=== PATIENT | male | born 1980 | race Caucasian/White ===

== ENCOUNTER 2016-09-25 13:03 | Emergency (ER) | payer MEDICAID ==
[~2016-09-25] VITALS: Ht 165.1 cm; Wt 88.5 kg
[2016-09-25 13:16] VITALS: BP 142/91
--- NOTE | 2016-09-25 14:33 | NUR ---
6 YO MALE BIB SELF FOR LEFT GROIN PAIN, FOR ONE MONTH. DENIES N/V/D; SKIN IS PINK/WARM/DRY; AAOX4 WITH EVEN AND STEADY GAIT; LUNGS CLEAR BL; HR EVEN AND REGULAR; PT DENIES ANY FEVER, CP, SOB, OR COUGH AT THIS TIME; PATIENT STATES PAIN OF 8/10 AT THIS TIME; VSS; PATIENT POSITIONED FOR COMFORT; HOB ELEVATED; BEDRAILS UP X2; BED DOWN. ER MD MADE AWARE OF PT STATUS.
--- NOTE | 2016-09-25 14:34 | NUR ---
Dr. Geller evaluating patient at bedside.
--- NOTE | 2016-09-25 15:02 | NUR ---
US tech at bedside for exam.
--- NOTE | 2016-09-25 17:30 | NUR ---
PT STS PAIN 3/10 .Patient appears to be resting comfortably in bed. Vital Signs within normal limits. Respirations even and unlabored.WILL CONTINUE TO MONITOR.
--- NOTE | 2016-09-25 17:46 | NUR ---
Dr. Geller reevaluating patient at bedside.
--- NOTE | 2016-09-25 18:00 | NUR ---
Patient discharged with v/s stable. Written and verbal after care instructions given and explained. Patient verbalized understanding. Ambulatory with steady gait. All questions addressed prior to discharge. Advised to follow up with PMD.
[2016-09-25 18:04] VITALS: BP 128/75
== END 2016-09-25 18:00 | disposition home or self-care (01) ==
LOC: MED 13:03
DX: R10.30 Lower abdominal pain, unspecified (principal)
CPT/HCPCS: 76870; 99284

== ENCOUNTER 2018-09-06 08:14 | Emergency (ER) | payer MEDICAID ==
[~2018-09-06] VITALS: Ht 165.1 cm; Wt 90.3 kg
[2018-09-06 08:16] VITALS: BP 126/75
--- NOTE | 2018-09-06 08:21 | NUR ---
PT AMB TO BED 4 WITH STEADY GAIT
--- NOTE | 2018-09-06 08:24 | NUR ---
JESUS JACINTO AT BEDSIDE EVALUATING PATIENT,
--- NOTE | 2018-09-06 08:29 | NUR ---
PT BIB SELF WITH C/O ABDOMEN DISTENTION AND PAIN X 4 DAYS. PATIENT STATES HE FEELS " 2 BALLS IN HIS ABDOMEN". PAIN 8/. PT AA0X4. VSS AT THIS TIME. DENIES , V, CONSTIPATION. HURTS MORE WHEN PT GOES FOR BM. SLIGHT ABDOMEN DISTENSION. PAIN TO TOUCH. ER MD TO SEE THE PT. PMH-DENIES RX-DENIES
[2018-09-06 09:13] VITALS: BP 126/75
--- NOTE | 2018-09-06 09:13 | NUR ---
Patient discharged with v/s stable. Written and verbal after care instructions given and explained. Patient alert, oriented and verbalized understanding of instructions. Ambulatory with steady gait. All questions addressed prior to discharge. ID band removed. Patient advised to follow up with PMD. Rx of TRAQMADOL HCL given. Patient educated on indication of medication including possible reaction and side effects. Opportunity to ask questions provided and answered.
== END 2018-09-06 09:13 | disposition home or self-care (01) ==
LOC: MED 08:14
DX: K43.9 Ventral hernia without obstruction or gangrene (principal); K40.90 Unilateral inguinal hernia, without obstruction or gangrene, not specified as recurrent
CPT/HCPCS: 81002; 99283

== ENCOUNTER 2018-09-06 17:33 | Emergency (ER) | payer MEDICAID ==
[~2018-09-06] VITALS: Ht 167.6 cm; Wt 90.7 kg
[2018-09-06 17:44] VITALS: BP 117/88
--- NOTE | 2018-09-06 17:50 | NUR ---
PT TO WAIT IN ER LOBBY. VSS AT THIS TIME. PT AA0X4. RR EVEN AND UNLABORED.
--- NOTE | 2018-09-06 18:29 | NUR ---
PATIENT AMBULATED TO ER BED 5
[2018-09-06] MEDS ORDERED: NACL 0.9% 1,000 ML IV SCH (18:37)
[2018-09-06] MEDS ORDERED: NACL 0.9% 1,000 ML IV ONE (18:37)
[2018-09-06] MEDS ORDERED: KETOROLAC 30 MG/ML VIAL IVP ONE ×2 (18:40→20:00)
--- NOTE | 2018-09-06 18:50 | NUR ---
PT WAS SEEN HERE EARLIER TODAY AND DIAGNOSED WITH INGUINAL HERNIA. CALLED JAC CONNER MD, [facility], TO FOLLOW UP AND THE CLOSEST APPT THEY HAVE IS THE . PATIENT STATES PAIN HAS NOT BEEN RELEIEVED SINCE HE LEFT. FILLED HIS PRESCRIPTION AND TOOK 1 PILL. PAIN 10/10. DENIES VOMITING OR DIARRHEA, REPORT NAUSEA; SKIN IS PINK/WARM/DRY; AAOX4 WITH EVEN AND STEADY GAIT; PT DENIES ANY FEVER, CP, SOB, OR COUGH AT THIS TIME; PATIENT STATES PAIN OF 10/10 AT THIS TIME; VSS; PATIENT POSITIONED FOR COMFORT; HOB ELEVATED; BEDRAILS UP X2; BED DOWN. ER MD MADE AWARE OF PT STATUS.
[2018-09-06 19:05] LABS: BASOPHILS % (AUTO) 0.3 % (0.0-2.0); EOSINOPHILS # (AUTO) 0.1 K/uL (0-0.4); EOSINOPHILS % (AUTO) 1.4 % (0.0-4.0); HEMATOCRIT 47.9 % (36-52); HEMOGLOBIN 16.4 g/dL (12.0-18.0); LYMPHOCYTES # (AUTO) 2.8 K/uL (2.0-11.5); LYMPHOCYTES % (AUTO) 43.4 % (20.5-51.1); MEAN CORPUSCULAR HEMOGLOBIN 29 pg (27-31); MEAN CORPUSCULAR HGB CONC 34 g/dL (33-37); MEAN CORPUSCULAR VOLUME 83.5 fL (80-94); MONOCYTES # (AUTO) 0.6 K/uL (0.8-1.0); MONOCYTES % (AUTO) 8.6 % (1.7-9.3); NEUTROPHILS % (AUTO) 46.3 % (42.2-75.2); PLATELET COUNT (AUTO) 179 K/uL (140-450); RED BLOOD CELL COUNT(AUTO) 5.73 MIL/uL (4.20-6.10); WHITE BLOOD COUNT (AUTO) 6.5 K/uL (4.8-10.8)
--- NOTE | 2018-09-06 19:18 | NUR ---
RECEIVED REPORT FROM SAMAN POSADA. TRANSFER OF CARE AT THIS TIME.
[2018-09-06 19:20] LABS: BARBITURATE, URINE NEG. ng/ml (NEG <=200); BENZODIAZEPINE, URINE NEG. ng/mL (NEG <=200); CANNABINOID, URINE NEG. ng/mL (NEG <=50); COCAINE, URINE NEG. ng/mL (NEG <=300); OPIATE, URINE NEG. ng/mL (NEG <=2000); PHENCYCLIDINE SCREEN,URINE NEG. ng/mL (NEG <=25)
[2018-09-06 19:20] LABS: PROTHROMBIN TIME 9.4 secs (10.8-13.4)
[2018-09-06 19:22] LABS: APPEARANCE,URINE CLEAR (CLEAR); BILIRUBIN,URINE NEGATIVE (NEGATIVE); BLOOD, URINE NEGATIVE (NEGATIVE); COLOR,URINE YELLOW (YELLOW); LEUKOCYTE ESTERASE ,URINE NEGATIVE (NEGATIVE); NITRITE, URINE NEGATIVE (NEGATIVE); PH,URINE 5.5 (5.0-9.0); UGLUCOSE 3+ (NEGATIVE)
[2018-09-06 19:26] LABS: ANION GAP 13.5 (8-16); CARBON DIOXIDE 30.1 mmol/L (21-32); CREATININE 0.9 mg/dL (0.7-1.3); POTASSIUM 4.6 mmol/L (3.5-5.1); TOTAL BILIRUBIN 0.4 mg/dL (0.0-1.0)
--- NOTE | 2018-09-06 19:56 | NUR ---
DR. HORNE EVALUATING AT BEDSIDE.
[2018-09-06 20:30] VITALS: BP 119/87
== END 2018-09-06 20:30 | disposition home or self-care (01) ==
LOC: MED 17:33
DX: K46.9 Unspecified abdominal hernia without obstruction or gangrene (principal)
CPT/HCPCS: 36415; 74176; 80053; 80305; 81003; 82150; 83690; 85025; 85610; 96374; 96376; 99284; J1885; J7030; 96375

== ENCOUNTER 2018-12-06 16:38 | Emergency (ER) | payer MEDICAID ==
[~2018-12-06] VITALS: Ht 165.1 cm; Wt 90.7 kg
[2018-12-06 16:49] VITALS: BP 150/92
--- NOTE | 2018-12-06 16:56 | NUR ---
C/O ABSCESS TO UPPER BACK X 3 MONTHS. + REDNESS/PAINFUL. NO MED HX. DENIES N/V/D; SKIN IS PINK/WARM/DRY; AAOX4 WITH EVEN AND STEADY GAIT; LUNGS CLEAR BL; HR EVEN AND REGULAR; PT DENIES ANY FEVER, CP, SOB, OR COUGH AT THIS TIME; PATIENT STATES PAIN OF 8/10 AT THIS TIME; VSS; PATIENT POSITIONED FOR COMFORT; HOB ELEVATED; BEDRAILS UP X2; BED DOWN. ER MD MADE AWARE OF PT STATUS. AT BEDSIDE.
--- NOTE | 2018-12-06 17:11 | NUR ---
Dr. Fonseca evaluating patient at bedside.
--- NOTE | 2018-12-06 17:24 | NUR ---
Patient discharged with v/s stable. Written and verbal after care instructions given and explained. Patient alert, oriented and verbalized understanding of instructions. Ambulatory with steady gait. All questions addressed prior to discharge. ID band removed. Patient advised to follow up with PMD. Rx of BACTRIM DS given. Patient educated on indication of medication including possible reaction and side effects. Opportunity to ask questions provided and answered.
[2018-12-06 17:25] VITALS: BP 125/79
== END 2018-12-06 17:24 | disposition home or self-care (01) ==
LOC: MED 16:38
DX: L02.212 Cutaneous abscess of back [any part, except buttock and flank] (principal)
CPT/HCPCS: 99283

== ENCOUNTER 2019-05-01 14:38 | Inpatient (IN) | payer MEDICAID ==
[~2019-05-01] VITALS: Ht 162.6 cm; Wt 88.5 kg
[2019-05-01 14:48] VITALS: BP 155/89
--- NOTE | 2019-05-01 15:20 | NUR ---
39/M BIB SELF C/O 5 DAYS WITH CONSTANT UMBILICAL REGION PAIN . ABD SOFT.PATIENT STATES PAIN OF 10/10 AT THIS TIME. PATIENT POSITIONED FOR COMFORT; HOB ELEVATED; BEDRAILS UP X1; BED DOWN. ER MD MADE AWARE OF PT STATUS.
[2019-05-01] MEDS ORDERED: fentaNYL 0.05 MG/ML VIAL IVP ONE ×2 (16:20→18:35)
[2019-05-01] MEDS ORDERED: ONDANSETRON 4 MG/2 ML VIAL IVP ONE (16:20)
[2019-05-01 17:28] LABS: APPEARANCE,URINE CLEAR (CLEAR); BILIRUBIN,URINE NEGATIVE (NEGATIVE); BLOOD, URINE NEGATIVE (NEGATIVE); COLOR,URINE YELLOW (YELLOW); LEUKOCYTE ESTERASE ,URINE NEGATIVE (NEGATIVE); NITRITE, URINE NEGATIVE (NEGATIVE); UGLUCOSE 3+ (NEGATIVE)
[2019-05-01 17:29] LABS: BASOPHILS % (AUTO) 0.5 % (0.0-2.0); EOSINOPHILS # (AUTO) 0.1 K/uL (0-0.4); EOSINOPHILS % (AUTO) 0.9 % (0.0-4.0); HEMATOCRIT 45.5 % (36-52); HEMOGLOBIN 16.1 g/dL (12.0-18.0); LYMPHOCYTES # (AUTO) 2.6 K/uL (2.0-11.5); MEAN CORPUSCULAR HEMOGLOBIN 29 pg (27-31); MEAN CORPUSCULAR HGB CONC 35 g/dL (33-37); MEAN CORPUSCULAR VOLUME 82.1 fL (80-94); MONOCYTES # (AUTO) 0.5 K/uL (0.8-1.0); MONOCYTES % (AUTO) 8.6 % (1.7-9.3); NEUTROPHILS # (AUTO) 2.9 K/uL (1.8-7.7); PLATELET COUNT (AUTO) 143 K/uL (140-450); RED BLOOD CELL COUNT(AUTO) 5.54 MIL/uL (4.20-6.10); RED CELL DISTRIBUTION WIDTH 13.6 % (11.6-13.7); WHITE BLOOD COUNT (AUTO) 6.1 K/uL (4.8-10.8)
[2019-05-01 17:57] LABS: ALBUMIN 3.8 g/dL (3.4-5.0); ANION GAP 13.1 (8-16); CARBON DIOXIDE 26.8 mmol/L (21-32); CREATININE 0.7 mg/dL (0.6-1.3); POTASSIUM 3.9 mmol/L (3.5-5.1); TOTAL BILIRUBIN 0.6 mg/dL (0.0-1.0)
[2019-05-01 18:05] LABS: PROTHROMBIN TIME 10.2 secs (10.8-13.4)
[2019-05-01] MEDS ORDERED: DOCUSATE SODIUM 100 MG GELCAP PO PRN (18:35)
[2019-05-01] MEDS ORDERED: DEXTROSE 50% 50 ML SYR IVP PRN (18:35)
[2019-05-01] MEDS ORDERED: ACETAMINOPHEN 325 MG TAB PO PRN (18:35)
[2019-05-01] MEDS ORDERED: ONDANSETRON 4 MG/2 ML VIAL IM/IVP PRN (18:35)
[2019-05-01 19:05] VITALS: BP 116/79
--- NOTE | 2019-05-01 19:05 | NUR ---
ADMITTED A 39M FROM ER. CAME BY [facility] DUE TO ABDOMINAL PAIN. ON MED SURG . AWAKE, ALERT AND ORIENTED X4. AMBULATORY. WITH NO C/O DISCOMFORT /PIN AT THIS TIME. SKIN INTACT WITH . HAS IV ACCESS ON THE LEFT AC G#20 . CLEAR AND PATENT. ORIENTED TO HOSPITAL STAY. CALL LIGHT WITHIN REACH. BED ON LOW POSITION, SIDE RAILS UP X2. INSTRUCTED TO CALL FO ANY ASSISTANCE NEEDED. MADE AWARE ABOUT DIET NPO EXCEPT MEDICATIONS. VERBALIZED UNDERSTANDING. WILL FOLLOW UP ADMIT ORDERS. WILL ALSO CONTINUE TO MONITOR.
--- NOTE | 2019-05-01 19:10 | NUR ---
A.Patient will be admitted to care of DR WALSH. Admited to MS. Will go to room 111B. Belongings list completed. Report to MADHAVI DAVISON.
[2019-05-01 19:24] LABS: FREE T4 (FREE THYROXINE) 1.22 ng/dL (0.76-1.46); MAGNESIUM 1.8 mg/dL (1.8-2.4); PHOSPHORUS 3.6 mg/dL (2.5-4.9); THYROID STIMULATING HORMONE 3.73 uIU/mL (0.34-3.74)
[2019-05-01] MEDS ORDERED: POLYETHYLENE GLYCOL 17 GM/PKT PO SCH (20:10)
[2019-05-01 21:36] LABS: BARBITURATE, URINE NEGATIVE ng/ml (NEG <=200); BENZODIAZEPINE, URINE NEGATIVE ng/mL (NEG <=200); CANNABINOID, URINE NEGATIVE ng/mL (NEG <=50); COCAINE, URINE NEGATIVE ng/mL (NEG <=300); OPIATE, URINE NEGATIVE ng/mL (NEG <=2000); PHENCYCLIDINE SCREEN,URINE NEGATIVE ng/mL (NEG <=25)
[2019-05-01] MEDS: FAMOTIDINE 20 MG TAB PO SCH (21:40)
[2019-05-01] MEDS: NACL 0.9% 1,000 ML IV SCH (21:40)
[2019-05-01] MEDS: BLOOD GLUCOSE MONITORING 1 DEV DEV FS SCH (21:42)
[2019-05-01] MEDS: INSULIN LISPRO SLIDING SCALE 100 UNITS/ML VIAL SUBQ PRN (21:52)
--- NOTE | 2019-05-01 21:52 | NUR ---
BLOOD SUAGR WAS CHECKED RESULT 234. INSULIN COVERAGE SUB Q GIVEN ORDERED.
--- NOTE | 2019-05-01 23:00 | NUR ---
MADE ROUNDS. PT SLEEPING. NO S/S FO ANY DISCOMFORT NOTED.
[2019-05-02] VITALS: BP 121/73
--- NOTE | 2019-05-02 01:00 | NUR ---
MADE ROUNDS. PT ASLEEP. NO S/S OF ANY PAIN NOTED.
--- NOTE | 2019-05-02 03:00 | NUR ---
PT SLEEPING. NO SYMPTOMS OF ANY DISCOMFORT NOTED. WILL CONTINUE TO MONITOR.
--- NOTE | 2019-05-02 05:00 | NUR ---
PT AWAKE, NO C/O ANY ABDOMINAL PAIN .
[2019-05-02] MEDS: BLOOD GLUCOSE MONITORING 1 DEV DEV FS SCH ×4 (06:12→20:51)
[2019-05-02] MEDS: INSULIN LISPRO SLIDING SCALE 100 UNITS/ML VIAL SUBQ PRN ×4 (06:14→20:55)
--- NOTE | 2019-05-02 06:14 | NUR ---
BLOOD SUGAR THIS AM 333. INSULIN COVERAGE ORDERED. GIVEN. PT WITH IVF INFUSING.
--- NOTE | 2019-05-02 06:40 | NUR ---
KUB DONE AT BEDSIDE. WILL FOLLOW UP RESULT.
--- NOTE | 2019-05-02 07:27 | NUR ---
ENDORSED PT IN STABLE CONDITION TO AM NURSE.
--- NOTE | 2019-05-02 07:28 | NUR ---
RECEIVED PATIENT FROM THE BOBCAT DRIVER/LABOR NURSE, MIKE, FOR CONTINUITY OF CARE. PATIENT IS AAOX4, RESPIRATIONS EVEN AND UNLABORED, ROOM AIR. VISIBLE CHEST RISE NOTED. MED-SURG. NPO EXCEPT MEDICATIONS. ABDOMEN SOFT AND NONTENDER. SKIN WARM, DRY, AND INTACT. IV IN THE LEFT AC G20 RUNNING NS AT 60 ML/HR. IV PATENT AND INTACT. PATIENT IS CONTINENT, USES URINAL, AMBULATES, FALL PRECAUTIONS IN PLACE. BED IN LOW POSITION. CALL LIGHT IS WITHIN REACH. WILL CONTINUE TO MONITOR.
[2019-05-02 07:41] LABS: BASOPHILS % (AUTO) 0.5 % (0.0-2.0); EOSINOPHILS # (AUTO) 0.1 K/uL (0-0.4); EOSINOPHILS % (AUTO) 1.3 % (0.0-4.0); HEMATOCRIT 42.8 % (36-52); HEMOGLOBIN 15.1 g/dL (12.0-18.0); LYMPHOCYTES # (AUTO) 1.9 K/uL (2.0-11.5); LYMPHOCYTES % (AUTO) 38.6 % (20.5-51.1); MEAN CORPUSCULAR HEMOGLOBIN 29 pg (27-31); MEAN CORPUSCULAR HGB CONC 35 g/dL (33-37); MEAN CORPUSCULAR VOLUME 83.2 fL (80-94); MONOCYTES # (AUTO) 0.5 K/uL (0.8-1.0); MONOCYTES % (AUTO) 10.1 % (1.7-9.3); NEUTROPHILS # (AUTO) 2.4 K/uL (1.8-7.7); NEUTROPHILS % (AUTO) 49.5 % (42.2-75.2); PLATELET COUNT (AUTO) 126 K/uL (140-450); RED BLOOD CELL COUNT(AUTO) 5.15 MIL/uL (4.20-6.10); RED CELL DISTRIBUTION WIDTH 13.6 % (11.6-13.7); WHITE BLOOD COUNT (AUTO) 4.9 K/uL (4.8-10.8)
[2019-05-02 07:58] LABS: ANION GAP 9.6 (8-16); CARBON DIOXIDE 29.4 mmol/L (21-32); CREATININE 0.7 mg/dL (0.6-1.3)
[2019-05-02] MEDS ORDERED: metFORMIN 500 MG TAB PO SCH (08:00)
--- NOTE | 2019-05-02 08:15 | NUR ---
DR. WALSH AND THE RESIDENT DOCTORS MADE ROUNDS.
--- NOTE | 2019-05-02 08:49 | NUR ---
PATIENT HAS BEEN SCREENED AND CATEGORIZED LOW NUTRITION RISK. PATIENT WILL BE SEEN WITHIN 7 DAYS OF ADMISSION. 05/08/[address]
[2019-05-02] MEDS: PSYLLIUM 12.2 GM/PKT PO SCH (08:55)
[2019-05-02] MEDS: FAMOTIDINE 20 MG TAB PO SCH ×2 (08:55→20:48)
--- NOTE | 2019-05-02 08:55 | NUR ---
GIVEN MORNING MEDICATIONS PO SCHEDULED. GIVEN MEDICATION EDUCATION. PATIENT VERBALIZED UNDERSTANDING. BED IN LOW POSITION. CALL LIGHT IS WITHIN REACH. WILL CONTINUE OT MONITOR
[2019-05-02 09:00] VITALS: BP 121/82
[2019-05-02 10:09] LABS: CHOL/HDL RATIO 7.1 (1-4.5)
--- NOTE | 2019-05-02 10:23 | NUR ---
FAMILY AT BEDSIDE. PATIENT'S DIET IS ADVANCED TO CCHO. PATIENT WILL BE NPO AFTER MIDNIGHT 05/03/19
[2019-05-02] MEDS ORDERED: BISACODYL 5 MG TABEC PO SCH (11:00)
[2019-05-02] MEDS: ATORVASTATIN 20 MG TAB PO SCH (11:14)
[2019-05-02] MEDS: NACL 0.9% 1,000 ML IV SCH (11:15)
--- NOTE | 2019-05-02 11:56 | NUR ---
BLOOD GLUCOSE CHECK: 293. WILL GIVE INSULIN COVERAGE
--- NOTE | 2019-05-02 12:03 | NUR ---
GIVEN 6 UNITS OF INSULIN SUBQ IN THE LEFT UPPER ARM. GIVEN MEDICATION EDUCATION. WILL CONTINUE TO MONITOR
[2019-05-02 12:11] VITALS: BP 120/65
--- NOTE | 2019-05-02 13:15 | NUR ---
PATIENT IS EATING LUNCH AT THIS TIME. NO SIGNS OF DISTRESS NOTED. BED IN LOW POSITION. CALL LIGHT IS WITHIN REACH. WILL CONTINUE TO MONITOR.
--- NOTE | 2019-05-02 14:23 | NUR ---
DC PLANNING 39 YRS OLD MALE PATIENT WAS ADMITTED FROM HOME WITH A DX OF ABDOMINAL PAIN. PT HAS A HX OF UMBILICAL HERNIA. CT ABD/PELVIS FATTY LIVER KUB SHOWED MILDELY DILATED SMALL BOWEL LOOPS. STARTED IVF , SURGICAL CONSULT WITH DR SPAIN EVALUATED PATIENT AND SCHEDULE FOR SURGERY TOMORROW 05/03/19 . CM TO FOLLOW
--- NOTE | 2019-05-02 15:48 | NUR ---
PATIENT IS WATCHING TV AT THIS TIME. NO SIGNS OF DISTRESS NOTED. DENIES PAIN. BED IN LOW POSITION. CALL LIGHT IS WITHIN REACH. WILL CONTINUE TO MONITOR
[2019-05-02 16:00] VITALS: BP 125/67
[2019-05-02] MEDS: metFORMIN 500 MG TAB PO SCH (16:58)
--- NOTE | 2019-05-02 16:59 | NUR ---
GIVEN METFORMIN PO. GIVEN MEDICATION EDUCATION. WILL CONTINUE TO MONITOR
--- NOTE | 2019-05-02 17:25 | NUR ---
GIVEN 6 UNITS OF INSULIN FOR BLOOD SUGAR 261. GIVEN IN THE RIGHT UPPER ARM SUBQ. GIVEN MEDICATION EDUCATION. PATIENT VERBALIZED UNDERSTANDING. BED IN LOW POSITION. CALL LIGHT IS WITHIN REACH. WILL CONTINUE TO MONITOR
--- NOTE | 2019-05-02 17:47 | NUR ---
PATIENT IS EATING DINNER AT THIS TIME.
--- NOTE | 2019-05-02 18:08 | NUR ---
PATIENT SIGNED CONSENT FOR REPAIR OF UMBILICAL HERNIA WITH MESH PLACEMENT. INFORMED PATIENT THAT HE WILL BE NPO AFTER MIDNIGHT AND IF HE HAS ANY QUESTIONS REGARDING THE SURGERY, ASK THE SURGEON.
--- NOTE | 2019-05-02 18:29 | NUR ---
PATIENT RECEIVED FLU SHOT AROUND MAR OR APRIL 2018 PER PATIENT'S REPORT
--- NOTE | 2019-05-02 19:13 | NUR ---
ENDORSED PATIENT TO THE SUPERVISOR CONTINGENTS NURSE FOR CONTINUITY OF CARE. PATIENT IS AWAKE. RESPIRATIONS EVEN AND UNLABORED, ROOM AIR. NO SIGNS OF DISTRESS NOTED. PATIENT IS IN STABLE CONDITION
--- NOTE | 2019-05-02 20:55 | NUR ---
BLOOD SUGAR WAS CHECKED RESULT 308. INSULIN COVERAGE GIVEN SUBQ ORDERED. PROVIDED WITH SOME SNACK . WILL CONTINUE TO MONITOR.
[2019-05-02] MEDS ORDERED: INFLUENZA VACCINE QUAD 0.5 ML SYR IMVAC PRN (22:10)
--- NOTE | 2019-05-02 22:30 | NUR ---
MADE ROUNDS. PT ASLEEP. NO S/S OF ANY DISCOMFORT NOR PAIN NOTED.
[2019-05-03] VITALS: BP 117/72
--- NOTE | 2019-05-03 00:05 | NUR ---
REINSTRUCTED PT ABOUT NPO STATUS FOR SURGERY . VERBALIZED UNDERSTANDING.
--- NOTE | 2019-05-03 02:00 | NUR ---
PT SLEEPING WELL. NO S/S OF ANY DISCOMFORT NOTED.
[2019-05-03] MEDS: NACL 0.9% 1,000 ML IV SCH ×2 (03:53→05:18)
--- NOTE | 2019-05-03 04:00 | NUR ---
PT WITH SCD MACHINE FOR BLE . FOR SURGERY AT 0920 THIS AM. PT AWARE.
--- NOTE | 2019-05-03 05:45 | NUR ---
DR. TURNER , RESIDENT MADE AWARE ABOUT PT BLOOD SUGAR. 275 THIS AM . PT IS NPO FOR SURGERY. SHE SAID JUST GIVE 5 UNITS HUMALOG SUBQ.
[2019-05-03] MEDS: BLOOD GLUCOSE MONITORING 1 DEV DEV FS SCH ×3 (05:50→11:25)
[2019-05-03] MEDS: INSULIN LISPRO SLIDING SCALE 100 UNITS/ML VIAL SUBQ PRN ×2 (05:51→11:52)
[2019-05-03 06:09] LABS: BASOPHILS % (AUTO) 0.2 % (0.0-2.0); EOSINOPHILS # (AUTO) 0.1 K/uL (0-0.4); EOSINOPHILS % (AUTO) 1.4 % (0.0-4.0); HEMATOCRIT 43.1 % (36-52); LYMPHOCYTES % (AUTO) 39.3 % (20.5-51.1); MEAN CORPUSCULAR HEMOGLOBIN 29 pg (27-31); MEAN CORPUSCULAR HGB CONC 35 g/dL (33-37); MEAN CORPUSCULAR VOLUME 82.6 fL (80-94); MONOCYTES # (AUTO) 0.5 K/uL (0.8-1.0); MONOCYTES % (AUTO) 9.5 % (1.7-9.3); NEUTROPHILS # (AUTO) 2.5 K/uL (1.8-7.7); NEUTROPHILS % (AUTO) 49.6 % (42.2-75.2); PLATELET COUNT (AUTO) 125 K/uL (140-450); RED BLOOD CELL COUNT(AUTO) 5.22 MIL/uL (4.20-6.10); RED CELL DISTRIBUTION WIDTH 13.4 % (11.6-13.7)
--- NOTE | 2019-05-03 06:15 | NUR ---
PT GIVEN A PRE OP BATH NEEDED FOR SURGERY . WILL ENDORSE TO AM NURSE.
[2019-05-03 07:00] LABS: MAGNESIUM 1.4 mg/dL (1.8-2.4)
--- NOTE | 2019-05-03 07:10 | NUR ---
ENDORSED PT IN STABLE CONDITION TO AM NURSE. FOR CONTINUITY OF CARE.
--- NOTE | 2019-05-03 07:11 | NUR ---
RECEIVED PATIENT FROM THE MARBLE MACHINE OPERATOR NURSE, MIKE, FOR CONTINUITY OF CARE. PATIENT IS AAOX4, RESPIRATIONS EVEN AND UNLABORED, ROOM AIR. VISIBLE CHEST RISE NOTED. MED-SURG. NPO AFTER MIDNIGHT. ABDOMEN SOFT AND NONTENDER. DENIES ABDOMINAL PAIN. SKIN WARM, DRY, AND INTACT. IV IN THE LEFT AC G20 RUNNING NS AT 60 ML/HR. IV PATENT AND INTACT. HCG BATH GIVEN. PATIENT HAS SCHEDULED SURGERY AT 0920. PATIENT IS CONTINENT, USES URINAL, AMBULATES, STANDARD PRECAUTIONS. BED IN LOW POSITION. CALL LIGHT IS WITHIN REACH. WILL CONTINUE TO MONITOR.
[2019-05-03 07:13] LABS: ANION GAP 8.3 (8-16); CARBON DIOXIDE 27.7 mmol/L (21-32); CREATININE 0.8 mg/dL (0.6-1.3)
[2019-05-03 08:00] VITALS: BP 120/73
[2019-05-03] MEDS: metFORMIN 500 MG TAB PO SCH (08:00)
--- NOTE | 2019-05-03 08:15 | NUR ---
PATIENT IS OFF UNIT FOR SURGERY
[2019-05-03] MEDS ORDERED: BUPIVACAINE-MPF/EPI 0.5% 30 ML VIAL INJ ONE (08:54)
[2019-05-03] MEDS ORDERED: LIDOCAINE 1% 500 MG/50 ML VIAL ONE (08:55)
[2019-05-03] MEDS: PSYLLIUM 12.2 GM/PKT PO SCH (09:00)
[2019-05-03] MEDS ORDERED: NEOSTIGMINE 1:1000 10 MG/10 ML VIAL ONE (09:08)
[2019-05-03] MEDS ORDERED: DESFLURANE 240 ML BTL INH ONE (09:08)
[2019-05-03] MEDS ORDERED: GLYCOPYRROLATE 0.2 MG/ML VIAL ONE (09:08)
[2019-05-03] MEDS ORDERED: ONDANSETRON 4 MG/2 ML VIAL ONE (09:08)
[2019-05-03] MEDS ORDERED: fentaNYL 0.05 MG/ML VIAL ONE (09:08)
[2019-05-03] MEDS ORDERED: SUCCINYLCHOLINE CHLORIDE 200 MG/10 ML VIAL IVP ONE (09:08)
[2019-05-03] MEDS ORDERED: ceFAZolin 1,000 MG VIAL ONE (09:08)
[2019-05-03] MEDS ORDERED: PROPOFOL 200 MG/20 ML VIAL IV ONE (09:08)
[2019-05-03] MEDS ORDERED: ROCURONIUM 50 MG/5 ML VIAL IV ONE (09:08)
[2019-05-03] MEDS ORDERED: KETOROLAC 30 MG/ML VIAL ONE (09:08)
[2019-05-03] MEDS ORDERED: HYDROcodone/APAP 5/325 MG 1 TAB TAB PO PRN (10:10)
[2019-05-03] MEDS ORDERED: MORPHINE SULFATE 2 MG/ML SYR IVP PRN (10:10)
[2019-05-03] MEDS ORDERED: BLOOD GLUCOSE MONITORING 1 DEV DEV FS ONE (10:15)
[2019-05-03] MEDS ORDERED: HYDROmorphone 1 MG/ML AMP IVP PRN (10:15)
[2019-05-03] MEDS ORDERED: BLOOD GLUCOSE MONITORING 1 DEV DEV FS SCH (10:36)
--- NOTE | 2019-05-03 10:40 | NUR ---
PATIENT IS BACK FROM SURGERY. ONE INCISION IN THE UMBILUS AREA WITH DERMABOND. PATIENT DENIES PAIN. VS ARE BEING CHECK
[2019-05-03] MEDS: ATORVASTATIN 20 MG TAB PO SCH (11:21)
[2019-05-03] MEDS: FAMOTIDINE 20 MG TAB PO SCH (11:21)
--- NOTE | 2019-05-03 11:26 | NUR ---
GIVEN MORNING MEDICATIONS PO. CHECK BLOOD SUGAR: 196. WILL GIVE INSULIN COVERAGE.
--- NOTE | 2019-05-03 11:52 | NUR ---
GIVEN 2 UNITS OF INSULIN SUBQ IN THE LEFT UPPER ARM. HANG MAG RIDER FOR MAG LEVEL 1.4. GIVEN EDUCATION. PATIENT VERBALIZED UNDERSTANDING. WILL CONTINUE
[2019-05-03] MEDS ORDERED: MAG SULF 2000 MG/WATER PREMIX 50 ML IV SCH (12:00)
[2019-05-03] MEDS ORDERED: DOCU-299 PO (12:14)
[2019-05-03] MEDS ORDERED: METF500T PO (12:14)
[2019-05-03] MEDS ORDERED: ATOR20TA40 PO (12:14)
[2019-05-03] MEDS ORDERED: LANC1COM MC (12:14)
[2019-05-03] MEDS ORDERED: BLOO1EAC40 MC (12:14)
--- NOTE | 2019-05-03 13:30 | NUR ---
Computer Technology Trainer Note: Basic Screen: Yes High Risk DC Screen [place]: KERLINE Floyd Relationship: SISTER Pre-Admission Living Arrangements: Lives with Other Prior ADL Independent Current Home Health Name/Tel: N/A Current DME/02 Name/Tel: N/A Current Hospice Name/Tel: N/A Current Dialysis Name/Tel: N/A Healthcare Decision Maker: Patient Advance Directive No - REFUSED Physician Orders for Life Sustaining Treatment Form No Patient/Family Have Educational Needs No Information Taught: Advance Directive Person Taught: Patient Teaching Tools: Verbal Factors Affecting Learning: None Participation Level: Refused Evaluation: Verbalizes Understanding Needs Additional Education: No Discipline: Case Mgt/Social Svcs Tentative Discharge Plan/Destination: No Needs Identified Will require assistance post discharge: No Referred to Special Order Jeweler: No Tentative Discharge Plan Summary: Patient is a 39-year-old male admitted for abdominal pain. Patient has PMHX of umbilicle hernia. Patient was admitted from home where patient lives with mother and . SW met with patient at bedside to verify demographics. Patient has no history of mental health and no history of substance abuse. Patient's tentative discharge plan is to return home. No further needs identified. Signature: SHUKRI Johnson Date: May 03, 2019 Time: 13:26
[2019-05-03 13:45] VITALS: BP 121/72
--- NOTE | 2019-05-03 13:52 | NUR ---
GIVEN FLU VACCINE VIA IM IN THE LEFT UPPER ARM. GIVEN EDUCATION. PATIENT VERBALIZED UNDERSTANDING.
--- NOTE | 2019-05-03 14:08 | NUR ---
DISCONTINUED IV AND REMOVED ID BAND.
--- NOTE | 2019-05-03 14:10 | NUR ---
DISCHARGED PAPER ON FOOT. NO ABDOMINAL PAIN. NO SOB. PATIENT IS IN STABLE CONDITION.
--- NOTE | 2019-05-03 14:10 | NUR ---
GIVEN DISCHARGED INSTRUCTIONS. PATIENT HAS APPT WITH DR. SPAIN AND PCP. HISTOLOGY MANAGER PRESCRIBED MEDS FROM PREFERRED PHARMACY. PATIENT SIGNED DISCHARGED PAPER.
== END 2019-05-03 14:10 | disposition home or self-care (01) | DRG 228 ==
LOC: MED 14:38 → MTU 18:33
PROVIDERS: ADMIT General Practice; ATTEND General Practice
PROC: 3E02340 Introduction of Influenza Vaccine into Muscle, Percutaneous Approach (ICD-10-PCS; 2019-05-02)
PROC: 0WUF0JZ Supplement Abdominal Wall with Synthetic Substitute, Open Approach (ICD-10-PCS; principal; 2019-05-03 09:20)
DX: K42.9 Umbilical hernia without obstruction or gangrene (principal); E11.65 Type 2 diabetes mellitus with hyperglycemia; K31.84 Gastroparesis; E11.43 Type 2 diabetes mellitus with diabetic autonomic (poly)neuropathy; K21.9 Gastro-esophageal reflux disease without esophagitis; K59.00 Constipation, unspecified; E78.5 Hyperlipidemia, unspecified; Z83.3 Family history of diabetes mellitus; Z23 Encounter for immunization
CPT/HCPCS: 36415; 71045; 74018; 80048; 80053; 80305; 81003; 82150; 82948; 83036; 83690; 83735; 83880; 84100; 84134; 84439; 84443; 84484; 85025; 85610; 85730; 87081; 93005; 96361; 96374; 96375; 96376; 99285; C1781; J0330; J0690; J1885; J2001; J2405; J2704; J2710; J3010; J3475; J3490; J7030; Q0092

== ENCOUNTER 2019-08-07 20:28 | Emergency (ER) | payer MEDICAID ==
[~2019-08-07] VITALS: Ht 165.1 cm; Wt 72.6 kg
[~2019-08-07 20:28] MED LIST: ATOR20TA40 PO; BLOO1EAC40 MC; DOCU-299 PO; LANC1COM MC; METF500T PO
--- NOTE | 2019-08-07 20:38 | NUR ---
PT TAKEN TO BED 2
[2019-08-07 20:44] VITALS: BP 150/85
--- NOTE | 2019-08-07 20:55 | NUR ---
Dr Fonseca at bedside for MSE
--- NOTE | 2019-08-07 20:56 | NUR ---
39/M presents ambulatory to ED, c/o 11/07 constant mid-abdominal pain around incision site from hernia repair (performed at 05/03/2019), x2 months. Incision site well approximated, no erythema, swelling or drainage. Pt reports nausea, denies vomiting. Reports constipation/hard stools, LBM yesterday. Denies fever/chills, cough/congestion, diarrhea, or dysuria. Pt awake and alert, skin normal color warm and dry, rr even and unlabored. Lung sounds clear BL. BS active x4, abd soft firm rounded, mildly tender to touch diffusely, no guarding. Hx DM, HLD, hernia repair OTC motrin without relief (last taken 2 days ago)
--- NOTE | 2019-08-07 21:14 | NUR ---
PT TAKEN TO CT
[2019-08-07 21:59] VITALS: BP 118/75
== END 2019-08-07 22:00 | disposition home or self-care (01) ==
LOC: MED 20:28
DX: G89.18 Other acute postprocedural pain (principal); K42.9 Umbilical hernia without obstruction or gangrene; R11.0 Nausea; E11.9 Type 2 diabetes mellitus without complications; E78.5 Hyperlipidemia, unspecified; Z48.01 Encounter for change or removal of surgical wound dressing; Z79.84 Long term (current) use of oral hypoglycemic drugs; Z79.899 Other long term (current) drug therapy; Z98.890 Other specified postprocedural states
CPT/HCPCS: 82948; 99284

== ENCOUNTER 2019-12-05 11:34 | Emergency (ER) | payer MEDICAID ==
[~2019-12-05] VITALS: Ht 162.6 cm; Wt 88.9 kg
[2019-12-05 11:38] VITALS: BP 143/86
--- NOTE | 2019-12-05 11:44 | NUR ---
Patient ambulated to bed 10. RN evaluating patient at bedside.
[2019-12-05] MEDS ORDERED: diazePAM 5 MG TAB PO ONE (13:10)
[2019-12-05] MEDS ORDERED: KETOROLAC 30 MG/ML VIAL IM ONE (13:10)
--- NOTE | 2019-12-05 13:20 | NUR ---
PATIENT PRESENTS TO ED WITH RIGHT SHOULDER/ NECK PAIN RADIATING TO RIGHT ARM . PT STATES PAIN BEGAN ABOUT A WEEK AGO, DENIES ANY TRAUMA OR INJURY. CMS+. . DENIES N/V/D; SKIN IS PINK/WARM/DRY; AAOX4 WITH EVEN AND STEADY GAIT; LUNGS CLEAR BL; HR EVEN AND REGULAR; PT DENIES ANY FEVER, CP, SOB, OR COUGH AT THIS TIME; PATIENT STATES PAIN OF 8/10 AT THIS TIME; VSS; PATIENT POSITIONED FOR COMFORT; HOB ELEVATED; BEDRAILS UP X2; BED DOWN. ER MD MADE AWARE OF PT STATUS.
--- NOTE | 2019-12-05 13:22 | NUR ---
cad technician at bedside.
--- NOTE | 2019-12-05 13:36 | NUR ---
PATIENT STATES THAT PAIN HAS DECREASED TO A 3/10
[2019-12-05 14:01] VITALS: BP 140/82
--- NOTE | 2019-12-05 14:03 | NUR ---
applied sling to right shoulder without any issues
--- NOTE | 2019-12-05 14:03 | NUR ---
Patient discharged with v/s stable. Written and verbal after care instructions given and explained. Patient alert, oriented and verbalized understanding of instructions. Ambulatory with steady gait. All questions addressed prior to discharge. ID band removed. Patient advised to follow up with PMD. Rx of VALIUM,NAPROSYN given. Patient educated on indication of medication including possible reaction and side effects. Opportunity to ask questions provided and answered.
== END 2019-12-05 14:03 | disposition home or self-care (01) ==
LOC: MED 11:34
DX: S46.911A Strain of unspecified muscle, fascia and tendon at shoulder and upper arm level, right arm, initial encounter (principal); E11.9 Type 2 diabetes mellitus without complications; Z79.899 Other long term (current) drug therapy; X58.XXXA Exposure to other specified factors, initial encounter; Y93.89 Activity, other specified; Y92.89 Other specified places as the place of occurrence of the external cause; Y99.8 Other external cause status
CPT/HCPCS: 73030; 96372; 99283; J1885; Q0092

== ENCOUNTER 2020-08-04 11:03 | Emergency (ER) | payer MEDICAID ==
[~2020-08-04] VITALS: Ht 162.6 cm; Wt 89.4 kg
[2020-08-04 11:07] VITALS: BP 137/92
--- NOTE | 2020-08-04 11:17 | NUR ---
PT ambulated to bed 01.
--- NOTE | 2020-08-04 11:21 | NUR ---
40 Y/O M BIB SELF FROM HOME, PATIENT PRESENTS TO ED WITH BILATERAL LOWER LEG PAIN FROM ABSCESS THAT STARTED FORMING LAST WEEK ON L LEG, PT NOW HAS ANOTHER ON HIS R LEG FROM LAST TUESDAY. DENIES N/V/D; SKIN IS PINK/WARM/DRY, LOWER LEGS REDNESS, EDEMA AROUND SITE, DISCHARGE AT SITE; AAOX4 WITH EVEN AND STEADY GAIT; LUNGS CLEAR BL; HR EVEN AND REGULAR; PT DENIES ANY FEVER, CP, SOB, OR COUGH AT THIS TIME; PATIENT STATES PAIN OF 10/10 AT THIS TIME; VSS; PATIENT POSITIONED FOR COMFORT; HOB ELEVATED; BEDRAILS UP X2; BED DOWN. ER MD MADE AWARE OF PT STATUS. PMH: DM2 JENNIFER
[2020-08-04] MEDS ORDERED: NAPR-54 PO (12:35)
[2020-08-04] MEDS ORDERED: SULF-59 PO (12:35)
[2020-08-04] MEDS ORDERED: METF500T PO (12:38)
[2020-08-04 12:45] VITALS: BP 137/92
--- NOTE | 2020-08-04 12:47 | NUR ---
Patient discharged with v/s stable. Written and verbal after care instructions given and explained. Patient alert, oriented and verbalized understanding of instructions. Ambulatory with steady gait. All questions addressed prior to discharge. ID band removed. Patient advised to follow up with PMD. Rx of NAPROXEN, SULFAMETHOXAZOLE given. Patient educated on indication of medication including possible reaction and side effects. Opportunity to ask questions provided and answered.
== END 2020-08-04 12:47 | disposition home or self-care (01) ==
LOC: MED 11:03
DX: L73.9 Follicular disorder, unspecified (principal); E11.9 Type 2 diabetes mellitus without complications; Z79.899 Other long term (current) drug therapy; Z79.82 Long term (current) use of aspirin
CPT/HCPCS: 99284

== ENCOUNTER 2021-05-21 10:44 | Emergency (ER) | payer MEDICAID ==
[~2021-05-21] VITALS: Ht 165.1 cm; Wt 90.7 kg
[~2021-05-21 10:44] MED LIST changes: +NAPR-54 PO; +SULF-59 PO
[2021-05-21 10:46] VITALS: BP 151/94
--- NOTE | 2021-05-21 10:51 | NUR ---
PT AMBULATED TO ER BED 5 WITH A STEADY GAIT.
--- NOTE | 2021-05-21 10:56 | NUR ---
Pt transported to [facility] by wheelchair
--- NOTE | 2021-05-21 11:12 | NUR ---
PT TAKEN TO ER BED 5 VIA W/C.
--- NOTE | 2021-05-21 11:20 | NUR ---
Dr. Laws is evaluating pt at bedside
--- NOTE | 2021-05-21 11:20 | NUR ---
41 y/o M BIB self from home c/o chronic L knee pain. Pt states knee injury at 14; reports worsening 3 weeks ago without relief. 8, sharp/constant, radiating to L thigh. Denies injury, fall, trauma. States Tylenol 650mg last night without relief. Aggrevating factors ambulation; alleviating with rest. No swelling, deformities noted. Bed locked in lowest position, side rails x 1. PMH/Sx/Meds: Denies NKDA
[2021-05-21] MEDS ORDERED: IBUP-2213 PO (11:35)
--- NOTE | 2021-05-21 11:48 | NUR ---
Patient discharged with v/s stable. Written and verbal after care instructions given and explained for Acute Knee Pain Patient alert, oriented and verbalized understanding of instructions. Ambulatory with steady gait. All questions addressed prior to discharge. ID band removed. Patient advised to follow up with PMD. Rx of Ibuprofen given. Patient educated on indication of medication including possible reaction and side effects. Opportunity to ask questions provided and answered.
== END 2021-05-21 11:48 | disposition home or self-care (01) ==
LOC: MED 10:44
DX: M25.562 Pain in left knee (principal); E11.9 Type 2 diabetes mellitus without complications; Z79.899 Other long term (current) drug therapy; Z79.84 Long term (current) use of oral hypoglycemic drugs
CPT/HCPCS: 73562; 99283

== ENCOUNTER 2021-09-13 13:05 | Emergency (ER) | payer MEDICAID ==
[~2021-09-13] VITALS: Ht 165.1 cm; Wt 87.5 kg
[~2021-09-13 13:05] MED LIST changes: +IBUP-2213 PO; +METF-346 PO; -METF500T PO
[2021-09-13 13:27] VITALS: BP 181/105
[2021-09-13] MEDS ORDERED: NACL 0.9% 1,000 ML IV ONE (13:30)
[2021-09-13] MEDS ORDERED: ONDANSETRON 4 MG/2 ML VIAL IVP ONE (13:30)
[2021-09-13] MEDS ORDERED: MORPHINE SULFATE 4 MG/ML SYR IVP ONE (13:30)
--- NOTE | 2021-09-13 13:31 | NUR ---
PER DR. HENDERSON PT OK TO BE IN LOBBY
[2021-09-13 14:04] LABS: BASOPHILS % (AUTO) 0.3 % (0.0-2.0); EOSINOPHILS # (AUTO) 0.1 K/uL (0-0.4); EOSINOPHILS % (AUTO) 1.1 % (0.0-4.0); HEMATOCRIT 45.8 % (36-52); LYMPHOCYTES # (AUTO) 2.1 K/uL (2.0-11.5); LYMPHOCYTES % (AUTO) 31.4 % (20.5-51.1); MEAN CORPUSCULAR HEMOGLOBIN 28 pg (27-31); MEAN CORPUSCULAR HGB CONC 35 g/dL (33-37); MEAN CORPUSCULAR VOLUME 81.5 fL (80-94); MONOCYTES # (AUTO) 0.7 K/uL (0.8-1.0); MONOCYTES % (AUTO) 10.1 % (1.7-9.3); NEUTROPHILS # (AUTO) 3.9 K/uL (1.8-7.7); NEUTROPHILS % (AUTO) 57.1 % (42.2-75.2); PLATELET COUNT (AUTO) 158 K/uL (140-450); RED BLOOD CELL COUNT(AUTO) 5.62 MIL/uL (4.20-6.10); RED CELL DISTRIBUTION WIDTH 13.5 % (11.6-13.7); WHITE BLOOD COUNT (AUTO) 6.8 K/uL (4.8-10.8)
[2021-09-13 14:28] LABS: ALBUMIN 3.8 g/dL (3.4-5.0); ANION GAP 12.3 (8-16); CARBON DIOXIDE 24.8 mmol/L (21-32); CREATININE 1.1 mg/dL (0.6-1.3); POTASSIUM 4.1 mmol/L (3.5-5.1); TOTAL BILIRUBIN 0.6 mg/dL (0.0-1.0)
--- NOTE | 2021-09-13 16:15 | NUR ---
PT AMBULATED TO ER BED 5
[2021-09-13] MEDS ORDERED: LACTATED RINGERS 1,000 ML IV ONE (16:25)
[2021-09-13] MEDS ORDERED: MORPHINE SULFATE 4 MG/ML SYR ONE (17:05)
[2021-09-13] MEDS ORDERED: ONDANSETRON 4 MG/2 ML VIAL ONE (17:06)
--- NOTE | 2021-09-13 17:42 | NUR ---
41YR OLD MALE BIB SELF C/O ABD PAIN X1DAY. RLQ RADIATES TO LLQ. DENIES FEVER DENIES DIARRHEA. DENIES PAIN OR FREQ/URGENCY WITH URINATION. PAIN LEVEL AT 8/10. PT IS A&OX4. TAMAZIGHT AND SWEDISH SPEAKING. 20G R AC. PT IN GOWN ON BEDSIDE MONITOR. SIDE RAILS UP X1 HOB ELEVATED. BED AT LOWEST POSITION NKDA DM
[2021-09-13 17:46] LABS: APPEARANCE,URINE CLEAR (CLEAR); BILIRUBIN,URINE NEGATIVE (NEGATIVE); BLOOD, URINE NEGATIVE (NEGATIVE); COLOR,URINE YELLOW (YELLOW); LEUKOCYTE ESTERASE ,URINE NEGATIVE (NEGATIVE); NITRITE, URINE NEGATIVE (NEGATIVE); UGLUCOSE 3+ (NEGATIVE)
--- NOTE | 2021-09-13 18:06 | NUR ---
PT RESTING IN BED. TOLERATED MORPHINE WELL. RESP EVEN AND UNLABORED
[2021-09-13] MEDS ORDERED: METF-346 PO (18:43)
[2021-09-13 19:11] VITALS: BP 116/63
== END 2021-09-13 19:11 | disposition home or self-care (01) ==
LOC: MED 13:05
DX: E11.43 Type 2 diabetes mellitus with diabetic autonomic (poly)neuropathy (principal); K31.84 Gastroparesis; Z79.4 Long term (current) use of insulin; Z79.899 Other long term (current) drug therapy
CPT/HCPCS: 36415; 74177; 80053; 81003; 85025; 96361; 96374; 96375; 99285; J2270; J2405; Q9967

== ENCOUNTER 2021-09-14 14:41 | Emergency (ER) | payer MEDICAID ==
[~2021-09-14] VITALS: Ht 165.1 cm; Wt 86.2 kg
[2021-09-14 14:56] VITALS: BP 139/72
--- NOTE | 2021-09-14 15:00 | NUR ---
41 y/o male, pt states he was here yesterday for pelvic pain, pt states he has been having dysuria, retention, pain has traveled to perineal area with increased pain. pain started 3 days ago and was only given medication for dm2. pt states he refuses to take his metformin because he said it makes him nervous. skin is pink/warm/dry. a&o x4, bulgarian speaking, with even and steady gait. lungs clear bl, heart rate even and regular. pt denies any fever, cp, sob, or cough at this time. pt states pain is 10/10 at this time. ermd made aware of pt. pmh: dm2 nka med: metformin
--- NOTE | 2021-09-14 16:46 | NUR ---
md pickering evaluating pt in kvng at this time
[2021-09-14 17:02] LABS: APPEARANCE,URINE CLEAR (CLEAR); BILIRUBIN,URINE NEGATIVE (NEGATIVE); BLOOD, URINE TRACE-I (NEGATIVE); COLOR,URINE YELLOW (YELLOW); LEUKOCYTE ESTERASE ,URINE NEGATIVE (NEGATIVE); NITRITE, URINE NEGATIVE (NEGATIVE); PH,URINE 5.5 (5.0-9.0); UGLUCOSE 3+ (NEGATIVE)
[2021-09-14 17:04] LABS: RBC,URINE 0-5 /HPF (0-5)
[2021-09-14 17:05] LABS: WBC,URINE NONE SEEN /HPF (0-5)
== END 2021-09-14 23:25 | disposition home or self-care (01) ==
LOC: MED 14:41
DX: R19.09 Other intra-abdominal and pelvic swelling, mass and lump (principal); R10.30 Lower abdominal pain, unspecified; E11.9 Type 2 diabetes mellitus without complications
CPT/HCPCS: 72193; 76870; 81001; 99285; Q0092; Q9967